=== PATIENT | male | born 1990 | race Caucasian/White ===

== ENCOUNTER 2016-11-03 10:20 | Emergency (ER) | payer OTHER ==
[~2016-11-03] VITALS: Ht 167.6 cm; Wt 99.8 kg
[~2016-11-03 10:20] MED LIST: CYCL10TA2 PO; METH4TAB2 PO; NAPR550T2 PO
--- NOTE | 2016-11-03 10:46 | ED.ADGEN ---
Past Medical History Past Medical History: Anxiety, Asthma, Depression, Other Additional Past Medical Histor: chronic back pain Past Surgical History: Other Additional Past Surgical Histo: Dental Alcohol Use: Rarely Drug Use: None Adult General Chief Complaint Chief Complaint: LOWER BACK PAIN OR INJURY HPI HPI Patient is a 26 year old man, history of back injury 2 years ago, with a herniated disc, anxiety, depression, who presents emergency department with complaint of exacerbation of lower back pain. Patient states that he was moving boxes yesterday, and believes maybe strained his back at that time. He denies any discrete injury, any weakness, numbness, tingling, any radiation of the pain , states it is located in his lower back worse in the left side than the right, but is bilateral. Denies any loss of bowel or bladder control, any pain with urination. Patient states that he took tramadol at home last night, has not taken any medication today. No chest pain Review of Systems Review of Systems Constitutional: Denies fever or chills. [] Eyes: Denies change in visual acuity. [] HENT: Denies nasal congestion or sore throat. [] Respiratory: Denies cough or shortness of breath. [] Cardiovascular: Denies chest pain or edema. [] GI: Denies abdominal pain, nausea, vomiting, bloody stools or diarrhea. [] : Denies dysuria. [] Musculoskeletal: Denies back pain or joint pain. [] Integument: Denies rash. [] Neurologic: Denies headache, focal weakness or sensory changes. [] Endocrine: Denies polyuria or polydipsia. [] Lymphatic: Denies swollen glands. [] Psychiatric: Denies depression or anxiety. [] Current Medications Current Medications Current Medications Medications (Trade) Dose Ordered Sig/Brandyn Start Time Stop Time Status Last Admin Dose Admin Diazepam (Valium) 10 mg 1X ONCE 11/03/16 11:00 11/03/16 11:01 DC 11/03/16 11:09 10 MG Allergies Allergies Allergies Coded Allergies Type Severity Reaction Last Updated Verified Sulfa (Sulfonamide Antibiotics) Allergy Intermediate Unknown 07/22/15 Yes ketorolac Allergy Intermediate Hives 07/22/15 Yes tramadol Allergy Intermediate Hives 07/22/15 Yes Physical Exam Physical Exam Constitutional: Well developed, well nourished, no acute distress, non-toxic appearance. [] HENT: Normocephalic, atraumatic, bilateral external ears normal, oropharynx moist, no oral exudates, nose normal. [] Eyes: PERRLA, EOMI, conjunctiva normal, no discharge. [] Neck: Normal range of motion, no tenderness, supple, no stridor. [] Cardiovascular:Heart rate regular rhythm, no murmur [] Lungs & Thorax: Bilateral breath sounds clear to auscultation [] Abdomen: Bowel sounds normal, soft, no tenderness, no masses, no pulsatile masses. [] Skin: Warm, dry, no erythema, no rash. [] Back: No tenderness, no CVA tenderness. [] Extremities: No tenderness, no cyanosis, no clubbing, ROM intact, no edema. [] Neurologic: Alert and oriented X 3, normal motor function, normal sensory function, no focal deficits noted. [] Psychologic: Affect normal, judgement normal, mood normal. [] Current Patient Data Vital Signs Vital Signs Date Time Temp Pulse Resp B/P Pulse Ox O2 Delivery O2 Flow Rate FiO2 11/03/16 11:14 85 20 138/86 99 Room Air 11/03/16 10:30 98.6 98.6 EKG EKG Not indicated. [] Radiology/Procedures Radiology/Procedures Not indicated. [] Course & Med Decision Making Course & Med Decision Making Pertinent Labs and Imaging studies reviewed. (See chart for details) Patient's examination is consistent with significant muscle strain noted in the bilateral paraspinal muscles, left sided greater than right, there is no midline tenderness or step-offs, no external signs of trauma other abnormalities. Patient with a normal neurologic examination, ambulating without difficulty in the ED, urinalysis does not reveal any evidence of bleeding or other concerning findings. Patient received an injection of Valium in the ED, with some improvement of his symptoms, he was provided with a work note, instructed to follow-up with his surgeon, and return to the ED for concerning symptoms as discussed. Patient voiced understanding and agreement with plan, discharged home in stable condition with plan as above. Dragon Disclaimer Dragon Disclaimer This electronic medical record was generated, in whole or in part, using a voice recognition dictation system. Departure Impression: Primary Impression: Lumbosacral strain Disposition: 01 HOME, SELF-CARE Condition: IMPROVED Scripts Cyclobenzaprine Hcl 10 Mg [id number] Mg PO TID PRN MUSCLE PAIN #14 TAB Prov:NASRA LENNON DO 11/03/16 Problem Qualifiers Primary Impression: Lumbosacral strain Encounter type: initial encounter Qualified Code: S39.012A - Strain of muscle, fascia and tendon of lower back, initial encounter NASRA LENNON DO Nov 03, 2016 10:46
[2016-11-03] MEDS ORDERED: DIAZEPAM 10 MG/2 ML DISP.SYRIN. IM ONE (11:00)
[2016-11-03] MEDS ORDERED: CYCL10TA2 PO (11:18)
[2016-11-03 11:34] VITALS: BP 120/72
== END 2016-11-03 11:34 | disposition home or self-care (01) ==
LOC: ER 10:20
DX: S39.012A Strain of muscle, fascia and tendon of lower back, initial encounter (principal); F32.9 Major depressive disorder, single episode, unspecified; G89.29 Other chronic pain; F41.9 Anxiety disorder, unspecified; J45.909 Unspecified asthma, uncomplicated; Z88.8 Allergy status to other drugs, medicaments and biological substances; Z88.5 Allergy status to narcotic agent; Z88.2 Allergy status to sulfonamides; X58.XXXA Exposure to other specified factors, initial encounter; Y93.89 Activity, other specified; Y92.89 Other specified places as the place of occurrence of the external cause; Y99.8 Other external cause status
CPT/HCPCS: 96372; 99283; J3360

== ENCOUNTER 2017-11-29 15:53 | Emergency (ER) | payer SELFPAY ==
[2017-11-29] MEDS ORDERED: KETOROLAC 60 MG/2 ML INJ. IM ×2 (17:15)
== END 2017-11-29 17:23 | disposition left against medical advice (07) ==
LOC: ER 15:53
DX: M54.9 Dorsalgia, unspecified (principal); F41.9 Anxiety disorder, unspecified; G89.29 Other chronic pain; J45.909 Unspecified asthma, uncomplicated; F32.9 Major depressive disorder, single episode, unspecified; Z88.2 Allergy status to sulfonamides; Z88.5 Allergy status to narcotic agent; Z88.6 Allergy status to analgesic agent

== ENCOUNTER 2018-01-18 20:06 | Emergency (ER) | payer SELFPAY ==
[2018-01-18] MEDS: CYCLOBENZAPRINE 10 MG TABLET. PO (21:17)
[2018-01-18] MEDS: NAPROXEN 500 MG TABLET PO (21:17)
[2018-01-18] MEDS: oxyCODONE/APAP 5/325 1 TAB TABLET PO (21:18)
== END 2018-01-18 21:27 | disposition home or self-care (01) ==
LOC: ER 20:06
DX: G89.29 Other chronic pain (principal); M54.5 Low back pain; F41.9 Anxiety disorder, unspecified; J45.909 Unspecified asthma, uncomplicated; F32.9 Major depressive disorder, single episode, unspecified; F17.200 Nicotine dependence, unspecified, uncomplicated; Z88.2 Allergy status to sulfonamides; Z88.5 Allergy status to narcotic agent; Z88.6 Allergy status to analgesic agent
CPT/HCPCS: 99284